=== PATIENT | male | born 1990 | race Two or more races ===

== ENCOUNTER 2017-06-16 12:33 | Emergency (ER) | payer SELFPAY ==
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
[2017-06-16 13:26] LABS: BASO % 0.6 % (0.0-2.0); EOS % 0.7 % (0.0-4.0); LYMPH % 31.5 % (20.0-40.0); MEAN CELL VOLUME 90.9 fl (80.0-94.0); MEAN CORPUSCULAR HEMOGLOBIN 30.2 pg (27.0-31.0); MEAN CORPUSCULAR HGB CONC 33.3 g/dL (33.0-37.0); MEAN PLATELET VOLUME 8.3 fl (7.2-11.7); MONO # 0.4 K/uL (0.0-0.8); MONO % 6.8 % (0.0-10.0); NEUT # 3.8 K/uL (1.8-7.0); NEUT % 60.4 % (50.0-75.0); RBC 4.98 Mil/uL (4.40-5.90); RED CELL DISTRIBUTION WIDTH 13.1 % (11.5-14.5); WHITE BLOOD COUNT 6.3 K/uL (4.8-10.8)
[2017-06-16 13:37] LABS: ALB/GLOB RATIO 1.3 (1.0-2.1); ALBUMIN 4.4 g/dL (3.5-5.0); ALT/SGPT 37 U/L (21-72); AST/SGOT 23 U/L (17-59); BLOOD UREA NITROGEN 13 mg/dl (9-20); CALCIUM 9.6 mg/dL (8.4-10.2); GFR AFRICAN-AMERICAN > 60; GFR NON-AFRICAN AMERICAN > 60
[2017-06-16 14:01] LABS: BARBITURATES, UR NEGATIVE (NEGATIVE); BENZODIAZEPINES, UR NEGATIVE (NEGATIVE); OPIATES, UR NEGATIVE (NEGATIVE); PHENCYCLIDINE, UR NEGATIVE (NEGATIVE)
[2017-06-16 14:14] LABS: SQUAMOUS EPITHIAL 1 /hpf (0-5); URINE BILIRUBIN NEGATIVE (NEGATIVE); URINE BLOOD NEGATIVE (NEGATIVE); URINE CLARITY CLOUDY (Clear); URINE COLOR AMBER (YELLOW); URINE GLUCOSE (UA) NEG (Normal); URINE LEUKOCYTE ESTERASE NEG Leu/uL (Negative); URINE NITRATE NEGATIVE (NEGATIVE); URINE PROTEIN 100 mg/dL (NEGATIVE)
--- NOTE | 2017-06-16 14:15 | RAD ---
HISTORY: clearance COMPARISON: No prior. FINDINGS: LUNGS: No active pulmonary disease. PLEURA: No significant pleural effusion identified, no pneumothorax apparent. CARDIOVASCULAR: Normal. OSSEOUS STRUCTURES: No significant abnormalities. VISUALIZED UPPER ABDOMEN: Normal. OTHER FINDINGS: None. IMPRESSION: No acute cardiopulmonary disease appreciated.
--- NOTE | 2017-06-16 16:40 | CARD ---
APPROVED REPORT EKG Measurement Heart [id number] <Conclusion> Sinus bradycardia Otherwise normal ECG
--- NOTE | 2017-06-17 03:31 | ED PDOC ---
- Laboratory Results Result Diagrams: 06/16/17 13:12 06/16/17 13:12 - ECG O2 Sat by Pulse Oximetry: 97 - Progress ED Course And Treament: Case endorsed to bid writer from Tony ODELL pending available bed/transfer to [facility] 1:30 Patient sleeping; no distress 3:00 Patient sleeping; no distress 4:30 Patient sleeping; no distress 5:00 Patient sleeping; no distress Disposition - Clinical Impression Clinical Impression: Schizophrenia - POA Present On Arrival: None - Disposition Disposition: Other Institution ([facility]) Disposition Time: 06:00 Condition: FAIR Forms: [facility] (Amharic) Handoff Comments: pending available bed and transfer
[2017-06-17 05:45] VITALS: TEMP 98
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
[2017-06-17 14:43] VITALS: PULSE 58; RESP 18
[2017-06-17 15:01] VITALS: BP 115/68
[2017-06-18 04:52] VITALS: O2SAT 97
== END 2017-06-17 15:04 | disposition short-term general hospital (02) ==
LOC: EDBD 12:33 → H.ER 12:33
DX: F20.9 Schizophrenia, unspecified (principal); Z91.14 Patient's other noncompliance with medication regimen; B20 Human immunodeficiency virus [HIV] disease
CPT/HCPCS: 71045; 80053; 81003; 85025; 93005; 99284; G0480